=== PATIENT | male | born 2000 | race Caucasian/White ===

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

== ENCOUNTER 2021-02-04 03:55 | Outpatient (CLI) | payer OTHER, SELFPAY ==
[2021-02-04 13:26] LABS: Abs Immature Grans 0.02 10^3/uL (0.0-0.06); Absolute Basophil Count 0.05 10^3/uL (0.0-0.2); Absolute Eosinophil Count 0.13 10^3/uL (0.0-0.7); Absolute Lymphocyte Count 1.43 10^3/uL (1.2-3.4); Absolute Neutrophil Count 4.02 10^3/uL (1.2-6.7); Basophils % 0.8; Eosinophils % 2.1; HCT 43.8 % (40.0-50.0); HGB 14.3 g/dL (13.5-17.5); Immature Grans % 0.3; Lymphocytes % 22.9; MCH 27.5 pg (27.0-33.0); MCHC 32.6 % (32.0-36.0); MCV 84.2 fL (80-95); MPV 9.9 fL (8.0-11.0); Monocytes % 9.6; Neutrophils % 64.3; Nucleated RBC 0 %; Platelet Count 274 10^3/uL (130-400); RDW 12.7 % (11.8-14.1); WBC 6.25 10^3/uL (4.4-10.8)
[2021-02-04 13:30] LABS: ESR < 1 mm/hr (0-15)
[2021-02-04 13:39] LABS: ALT 21 U/L (16-63); AST 13 U/L (15-37); Alkaline Phosphatase 72 U/L (46-116); Anion Gap 5.6 mmol/L (3-11); BUN 11 mg/dL (7-18); Bilirubin, Total 0.4 mg/dL (0.2-1.0); CO2 28.4 mmol/L (21.0-32.0); Calcium 8.8 mg/dL (8.5-10.1); Chloride 105 mmol/L (98-107); Glucose 93 mg/dL (74-106); LDH 139 U/L (85-227); Potassium 3.9 mmol/L (3.5-5.1); Sodium 139 mmol/L (136-145); Total Protein 6.9 g/dL (6.4-8.2)
== END 2021-02-04 03:56 | disposition home or self-care (01) ==
LOC: LBO 03:55
PROVIDERS: PCP Internal Medicine; Visit Provider Internal Medicine Hematology & Oncology
DX: C81.08 Nodular lymphocyte predominant Hodgkin lymphoma, lymph nodes of multiple sites (principal)
CPT/HCPCS: 36415; 80053; 85652; 83615; 85025

== ENCOUNTER → 2025-07-03 01:23 | Outpatient (CLI) | payer OTHER, SELFPAY ==
--- NOTE | 2025-07-03 09:36 | DI.CT_ITS ---
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 TECHNIQUE: Imaging Protocol: Axial computed tomography images with coronal and sagittal reformatted images were created and reviewed. CONTRAST MATERIAL: Intravenous: Omnipaque 350 Contrast volume:100mL COMPARISON: There are no priors for comparison. FINDINGS: Orbits and orbital soft tissues: Within normal limits. Visualized paranasal sinuses: There is a small mucous retention cyst in the right maxillary sinus. The remaining visualized paranasal sinuses and mastoid air cells are clear. Pharynx: Within normal limits. Larynx: Within normal limits. Retropharyngeal space: Within normal limits. Parotids/submandibular: Within normal limits. Thyroid gland: Within normal limits. Lymphadenopathy: There is an enlarged right level 2 lymph node measuring 3.6 AP by 2.1 transverse by 5.1 craniocaudad. There are enlarged level 6 lymph nodes bilaterally. The largest is on the right and measures 1.8 x 1.3 cm. Trachea: Within normal limits. Lung apices: Within normal limits. Bones: Within normal limits for the patient's age. Carotids/Jugular: Within normal limits. Soft tissues: Within normal limits. IMPRESSION: Bilateral cervical adenopathy consistent with the patient's known history of lymphoma. RADIATION DOSE DELIVERED: Total DLP Total DLP DATA REPOSITORY: All CT scans at this facility are submitted to the National Radiology Data Registry (NRDR) Dose Index Registry (DIR) with the [employer] ([employer]). RADIATION OPTIMIZATION: All CT scans at this facility use at least one of these dose optimization techniques: automated exposure control; mA and/or kV adjustment per patient size (includes targeted exams where dose is matched to clinical indication); or iterative reconstruction.
[2025-07-03] MEDS: Normal Saline Flush 10 ML SYR IVP (13:34)
[2025-07-03] MEDS: Omnipaque 350 MG/ML 100 ML BTL IJ (13:34)
[2025-07-03] MEDS: Normal Saline - Diluent 50 ML VIAL IJ (13:34)
--- NOTE | 2025-07-03 13:51 | DI.CT_ITS ---
Exam(s) CT HEAD WO/W EXAM: CT HEAD WO/W CLINICAL HISTORY: Assess R cervical lymph node prior to surgery,RECURRENT LYMPHOMA. TECHNIQUE: Imaging Protocol: Axial computed tomography images with coronal and sagittal reformatted images were created and reviewed. CONTRAST MATERIAL: Intravenous: Omnipaque 350 contrast volume:100 mL COMPARISON: No exams were available for comparison FINDINGS: Ventricles and Extra axial spaces: Normal in size and morphology for the patient's age. Hemorrhage: None. Cerebral parenchyma: Normal. Enhancement: No suspicious enhancement. [place] of [place]: Unremarkable. Midline shift: None. Brainstem/Cerebellum: Normal. Calvarium: Normal. Visualized Paranasal sinuses/Mastoids: Clear. Soft tissues: Unremarkable. IMPRESSION: Normal CT scan of the head. RADIATION DOSE DELIVERED: 2,009.69mGy.cm Total DLP 2,009.69mGy.cm Total DLP DATA REPOSITORY: All CT scans at this facility are submitted to the National Radiology Data Registry (NRDR) Dose Index Registry (DIR) with the [employer] ([employer]). RADIATION OPTIMIZATION: All CT scans at this facility use at least one of these dose optimization techniques: automated exposure control; mA and/or kV adjustment per patient size (includes targeted exams where dose is matched to clinical indication); or iterative reconstruction.
== END ==
LOC: DI 01:23
PROVIDERS: PCP Internal Medicine; Visit Provider Student in an Organized Health Care Education/Training Program
DX: C85.88 Other specified types of non-Hodgkin lymphoma, lymph nodes of multiple sites (principal)
CPT/HCPCS: 70491; 70470; J3490

== ENCOUNTER 2025-07-12 06:26 | Day surgery (SDC) | payer OTHER, SELFPAY ==
[2025-07-12 06:35] VITALS: BP 133/81; PULSE 94; RESP 16; TEMP 36.6; O2SAT 100
[2025-07-12] MEDS: Lactated Ringers 1,000 ML 80 ML IV (06:57)
--- NOTE | 2025-07-12 07:09 | W.ANESPRE ---
General Info Date of Service Date Performed: 07/12/25 Height: 5 ft 6 in Weight: 89.9 kg Body Mass Index (BMI): 31.9 Surgical Procedure: Operation Date: 07/12/25 07:40 Proposed Procedure Side Surgeon p Excisional Cervical Lymph Node Biopsy Right Rj Devlin MD Meds Allergies and Home Medications Allergies Allergy/AdvReac Type Severity Reaction Status Date / Time No Known Allergies Allergy Verified 07/12/25 06:54 Home Medication ?Medication ?Instructions ?Recorded loratadine 10 mg tablet 10 mg PO DAILY 10/19/24 Current Visit Medications: Current Medications Generic Name Dose Route Start Last Admin Trade Name Freq PRN Reason Stop Dose Admin Ringer's Solution 1,000 mls @ 80 mls/hr 07/12/25 07:00 07/12/25 06:57 IV 08/11/25 06:59 80 mls/hr INFUSION IVY Administration PFSH Active Problems Active Problems: Problem Status Onset Code 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 R hand/5th metacarpal #2. Mediport placement and removal Tobacco Smoking/Tobacco Use Status: Former Tobacco Use Alcohol Alcohol Intake: current Alcohol intake frequency: a few times a month Alcohol type: beer and hard liquor Substance Use Substance use: Daily Substance use type: marijuana Vital Signs and Lab Results Vital Signs Most Recent Vital Signs in EMR: Most Recent Vital Signs Temp Pulse Resp BP Pulse Ox 36.6 C 94 H 16 133/81 100 07/12/25 06:35 07/12/25 06:35 07/12/25 06:35 07/12/25 06:35 07/12/25 06:35 Anesthesia Assessment and Plan Anesthesia History Personal History: No History of Anesthesia Complications Family History: No Family History of Anesthesia Complications Exercise Tolerance Exercise Tolerance: Metabolic Equivalents>4 Cardiac & Pulmonary Exam Cardiac Exam: Normal S1/S2 Heart Sounds Pulmonary Exam: Clear Bilateral Breath Sounds Implantable Cardiac Device Does patient have a Pacemaker or an ICD?: No Airway Exam Known Difficult Airway: No ASA Classification ASA Score: ASA 2 Emergency Case?: No NPO Status NPO Status: NPO Clears >2 hours, Solids >8 hours Anesthesia Plan Resuscitation Status: Full Code Anesthesia Technique: General Anesthesia Airway Planned: Endotracheal Tube Monitors Used: Standard Monitors and SedLine
--- NOTE | 2025-07-12 08:09 | PGE_ITS ---
Date of Service Date of service: 07/12/25 Time of Service: 08:09 Assessment and Plan Assessment and plan (1) Recurrent lymphoma of lymph node with unknown EBV status: Status: Acute Assessment and plan: 24 yo man with chronic lymphoma and could benefit from another, elective LN biopsy to potentially guide more treatment. Non-emergent situation and today he is clearly distraught emotionally. He is uncertain if he wants to proceed with the biopsy and I counseled him to postpone and reschedule this otherwise elective procedure. We are happy to reschedule him as soon as he is ready and certain that he wants to proceed. He is happy with this plan, except for having taken the day off from work. He will call us to reschedule when he is ready to do so. Subjective Subjective Interval history since last seen: No clinical changes in symptoms or situation. At bedside, patient is uncertain if he wants to proceed with biopsy today. Significant other with him is also unsure. Exam Narrative Exam Narrative: Gen: Nontoxic and comfortable, but appears anxious and frustrated. Neuro: AxOx3 Psych: Mildly anxious with frustration. Insight and understanding is mildly impaired acutely due to emotional distress. Objective Last Vital Signs Temp 97.9 F 07/12/25 06:35 Pulse 94 H 07/12/25 06:35 Resp 16 07/12/25 06:35 BP 133/81 07/12/25 06:35 Pulse Ox 100 07/12/25 06:35 VTE Prohylaxis Risk Level: Low Risk Contraindications: None Prophylaxis: Patient ambulatory Time Spent with Patient Time Spent with Patient: >50 minutes Time was spent: preparing to see the patient(eg.review tests), referring, communicating with other health vocational childcare teacher, counseling the patient, care coordination and other
== END 2025-07-12 06:27 | disposition home or self-care (01) ==
PROVIDERS: PCP Internal Medicine; Visit Provider Student in an Organized Health Care Education/Training Program
DX: C85.80 Other specified types of non-Hodgkin lymphoma, unspecified site (principal); Z53.29 Procedure and treatment not carried out because of patient's decision for other reasons
CPT/HCPCS: J0665